=== PATIENT | female | born 1990 | race Caucasian/White ===

== ENCOUNTER 2016-10-28 03:01 | Emergency (ER) | payer SELFPAY ==
[2016-10-28 03:13] VITALS: BP 114/81
[2016-10-28] MEDS ORDERED: Lidocaine 1% 50 ML MDV INJECT ONE (03:34)
[2016-10-28] MEDS ORDERED: Diphtheria,Pertussis(Acell),Tetanus Vaccine 0.5 ML SDV inactive IM ONE (03:34)
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
== END 2016-10-28 04:47 | disposition home or self-care (01) ==
LOC: JD.ED 03:01
DX: S61.411A Laceration without foreign body of right hand, initial encounter (principal); Z23 Encounter for immunization; W26.0XXA Contact with knife, initial encounter; F41.8 Other specified anxiety disorders; F17.210 Nicotine dependence, cigarettes, uncomplicated
CPT/HCPCS: 12002; 90471; 90715; 99282; 99283-25

== ENCOUNTER 2017-09-14 21:59 | Emergency (ER) | payer SELFPAY ==
[2017-09-14 22:20] VITALS: BP 116/77
--- NOTE | 2017-09-15 00:07 | EDM.PDOC ---
ED HPI GENERAL MEDICAL PROBLEM - General Chief Complaint: ENT Problem Stated Complaint: poss jaw infection Time Seen by Provider: 09/14/17 23:18 Source of Information: Reports: Patient History Limitations: Reports: No Limitations - History of Present Illness INITIAL COMMENTS - FREE TEXT/NARRATIVE: Patient is a 26 year old female who presents to the E.D. complaining of left upper tooth pain. Patient states she has had URI symptoms for the past two days. THis includes runny nose, sorethroat, and body aches. Mild cough non productive in nature. Developed pain to the gumline of the back molar with questionable swelling to the cheek. She has no history of dental infections. IN addition notes left neck lymph node is mildy swollen. Denies pain with chewing on the affected side. Denies fever, N/V, diarrhea, SOB, CP, Abdominal pain, ear pain, or any additional complaints. Left Neck Pain Score (Numeric/FACES): 5 - Related Data Allergies Allergy/AdvReac Type Severity Reaction Status Date / Time No Known Allergies Allergy Verified 10/28/16 03:09 Home Meds: Home Meds LORazepam [Ativan] 0.5 mg PO TID PRN 09/14/17 [History] Past Medical History Psychiatric History: Reports: Anxiety, Depression, PTSD - Past Surgical History Female Surgical History: Reports: Section Social & Family History - Tobacco Use Smoking Status *Q: Former Smoker Years of Tobacco use: 10 Packs/Tins Daily: 0.5 Used Tobacco, but Quit: Yes Month Tobacco Last Used: 4 days ago - Caffeine Use Caffeine Use: Reports: Coffee, Energy Drinks, Soda - Recreational Drug Use Recreational Drug Use: No - Living Situation & Occupation Living situation: Reports: Single ED ROS GENERAL - Review of Systems Review Of Systems: See Below Constitutional: Denies: Fever, Malaise, Decreased Appetite HEENT: Reports: Rhinitis. Denies: Ear Pain, Throat Pain Respiratory: Reports: Cough. Denies: Sputum Cardiovascular: Reports: No Symptoms Endocrine: Reports: No Symptoms GI/Abdominal: Reports: No Symptoms Musculoskeletal: Reports: Neck Pain (left sided lymph node) Skin: Reports: No Symptoms Neurological: Reports: No Symptoms Psychiatric: Reports: No Symptoms ED EXAM, GENERAL - Physical Exam Exam: See Below Exam Limited By: No Limitations General Appearance: Alert, WD/WN, No Apparent Distress Eye Exam: Bilateral Eye: PERRL Ears: Normal External Exam, Normal Canal, Hearing Grossly Normal, Normal TMs Nose: Normal Inspection, Normal Mucosa, No Blood Throat/Mouth: Normal Inspection, Normal Teeth, Normal Oropharynx, Normal Voice, No Airway Compromise, Other (No gumline swelling to the upper palate. ) Head: Atraumatic, Normocephalic Neck: Normal Inspection, Supple, Full Range of Motion, Lymphadenopathy (L). No : Lymphadenopathy (R) Respiratory/Chest: No Respiratory Distress, Lungs Clear, Normal Breath Sounds, No Accessory Muscle Use, Chest Non-Tender Cardiovascular: Normal Peripheral Pulses, Regular Rate, Rhythm, No Murmur Peripheral Pulses: 4+: Radial (L) Neurological: Alert, Oriented, CN II-XII Intact, Normal Cognition, No Motor/ Sensory Deficits Psychiatric: Normal Affect, Normal Mood Skin Exam: Warm, Dry, Intact, Normal Color, No Rash Course - Vital Signs Last Recorded V/S: Last Vital Signs Temp 98.0 F 09/14/17 22:18 Pulse 88 09/14/17 22:18 Resp 20 09/14/17 22:18 BP 116/77 09/14/17 22:18 Pulse Ox 98 09/14/17 22:18 - Re-Assessments/Exams Free Text/Narrative Re-Assessment/Exam: On examination no concerning findings. Patient has a viral upper respiratory infection there is not require any treatment on our part. MIld swelling to he tonsilar lymph node. Non painful. Patient will be discharged home with instructions as documented. Departure - Departure Time of Disposition: 00:05 Disposition: Home, Self-Care 01 Condition: Good Clinical Impression: Viral upper respiratory tract infection with cough - Discharge Information Instructions: Upper Respiratory Infection, Adult, [id number] Referrals: Ariella Gomez PA-C [Primary Care Provider] - Forms: ED Department Discharge, ED Return to Work/School Form Additional Instructions: Vital upper respiratory infection. Treatment symptomatic care including Tylenol and Motrin in alternating fashion for pain. Push the fluids. Utilize nasal saline spray as needed throughout the course the day to loosen nasal secretions. Ensure adequate rest. Follow-up with PCP this coming week for reevaluation. Return to the ED if you develop any new or worsening symptoms.
== END 2017-09-14 23:55 | disposition home or self-care (01) ==
LOC: JD.ED 21:59
DX: J06.9 Acute upper respiratory infection, unspecified (principal); Z87.891 Personal history of nicotine dependence
CPT/HCPCS: 99282; 99283

== ENCOUNTER 2023-01-01 14:20 | Emergency (ER) | payer MEDICAID ==
[2023-01-01] MEDS ORDERED: methylPREDNISolone Sodium Succinate 125 MG/2 ML SDV IM ONE (15:29)
[2023-01-01 16:26] VITALS: BP 118/70; PULSE 80
== END 2023-01-01 16:26 | disposition home or self-care (01) ==
LOC: JD.ED 14:20
DX: L25.9 Unspecified contact dermatitis, unspecified cause (principal); F17.210 Nicotine dependence, cigarettes, uncomplicated; Z88.8 Allergy status to other drugs, medicaments and biological substances
CPT/HCPCS: 96372; 99283; J2930; 99282

== ENCOUNTER 2023-08-19 17:47 | Emergency (ER) | payer MEDICAID ==
[2023-08-19 19:28] LABS: APPEARANCE,URINE SLT CLOUDY (Clear); BILIRUBIN,URINE NEGATIVE (Negative); COLOR,URINE YELLOW (Yellow); GLUCOSE,URINE NEGATIVE (Negative); KETONES,URINE NEGATIVE (Negative); LEUKOCYTE ESTERASE,URINE NEGATIVE (Negative); NITRITE,URINE NEGATIVE (Negative); OCCULT BLOOD,URINE NEGATIVE (Negative); PH,URINE 6.5 (5.0-8.0); PROTEIN,URINE TRACE (Negative); UROBILINOGEN,URINE 0.2 (0.2-1.0)
[2023-08-19 19:29] LABS: BASOPHILS ABSOLUTE AUTO 0.1 K/mm3 (0.0-0.2); BASOPHILS PERCENT AUTO 0.5 % (0.0-1.0); EOSINOPHILS ABSOLUTE AUTO 0.1 K/mm3 (0.0-0.4); EOSINOPHILS PERCENT AUTO 0.4 % (0.0-6.0); HEMATOCRIT 38.8 % (37.0-47.0); HEMOGLOBIN 12.5 gm/dl (12.0-16.0); IMMATURE GRAN ABSOLUTE AUTO 0.04 K/mm3 (0.00-0.05); IMMATURE GRAN PERCENT AUTO 0.3 % (0.0-0.4); LYMPHOCYTES ABSOLUTE AUTO 2.9 K/mm3 (1.0-4.8); LYMPHOCYTES PERCENT AUTO 24.2 % (24.0-44.0); MEAN CORPUSCULAR HEMOGLOBIN 27.4 pg (28.0-32.0); MEAN CORPUSCULAR HGB CONC 32.2 g/dl (32.0-36.0); MEAN CORPUSCULAR VOLUME 84.9 fl (83.0-99.0); MEAN PLATELET VOLUME 9.1 fl (9.4-12.3); MONOCYTES ABSOLUTE AUTO 0.8 K/mm3 (0.0-0.8); MONOCYTES PERCENT AUTO 6.3 % (0.0-8.0); NEUTROPHILS ABSOLUTE AUTO 8.1 K/mm3 (1.8-7.7); NEUTROPHILS PERCENT AUTO 68.3 % (41.0-71.0); PLATELET COUNT,PLT 347 K/mm3 (150-400); RED BLOOD CELL COUNT 4.57 M/mm3 (4.10-5.30); WHITE BLOOD CELL COUNT,WBC 11.82 K/mm3 (3.9-11.3)
[2023-08-19 19:35] LABS: BARBITURATE SCREEN,URINE NEGATIVE (CUTOFF=200); BENZODIAZEPINES SCREEN,URINE NEGATIVE (CUTOFF=150); BUPRENORPHINE SCREEN,URINE NEGATIVE (CUTOFF=10); METHADONE SCREEN, URINE NEGATIVE (CUTOFF=200); METHAMPHETAMINES SCREEN, URINE PRESUMPTIVE POSITIVE (CUTOFF=500); OXYCODONE SCREEN,URINE NEGATIVE (CUT0FF=100); THC SCREEN,URINE 20 NG/ML NEGATIVE (CUTOFF=50)
[2023-08-19 19:49] LABS: ALKALINE PHOSPHATASE 78 U/L (46-116); ANION GAP 13.4 (5-15); ASPARTATE AMNIOTRANSFERASE,AST 15 U/L (15-37); BILIRUBIN TOTAL 0.2 mg/dL (0.2-1.0); BLOOD UREA NITROGEN,BUN 16 mg/dL (7-18); CALCIUM 8.4 mg/dL (8.5-10.1); CARBON DIOXIDE,CO2 27 mEq/L (21-32); CHLORIDE,CL 101 mEq/L (98-107); CREATININE 0.8 mg/dL (0.55-1.02); EST CRCL DRUG DOSING (CG) 78.37 mL/min; ESTIMATED GFR 99 mL/min (>60); GLUCOSE RANDOM 138 mg/dL (70-99); POTASSIUM,K 3.4 mEq/L (3.5-5.1); PROTEIN TOTAL,TP 7.6 g/dl (6.4-8.2); SODIUM,NA 138 mEq/L (136-145); TSH 2.847 uIU/mL (0.358-3.74)
[2023-08-19 19:56] LABS: AMPHETAMINES SCREEN, URINE PRESUMPTIVE POSITIVE (CUTOFF=500)
[2023-08-19 20:01] LABS: ALANINE AMINOTRANSFERASE,ALT 33 U/L (14-59)
[2023-08-19 20:04] LABS: ACETAMINOPHEN 0 ug/mL (10-30); HCG QUANTITATIVE < 1.0 mIU/mL
[2023-08-19] MEDS ORDERED: Nicotine 14 MG/24 Hr Patch TRDERM ONE (20:04)
[2023-08-19 20:06] LABS: BACTERIA,URINE MODERATE /hpf (FEW); MUCUS,URINE MODERATE /hpf (FEW); RBC,URINE 0-5 /hpf (0-5); WBC,URINE 0-5 /hpf (0-5)
[2023-08-19 20:12] LABS: ALBUMIN 3.8 g/dl (3.4-5.0)
[2023-08-19 20:27] LABS: CORONAVIRUS COVID-19 NAA NEGATIVE (NEGATIVE); INFLUENZA A NAA NEGATIVE (NEGATIVE)
[2023-08-20 00:07] VITALS: BP 126/83; PULSE 76
== END 2023-08-20 00:18 ==
LOC: JD.ED 17:47
DX: F31.9 Bipolar disorder, unspecified (principal); F15.10 Other stimulant abuse, uncomplicated
CPT/HCPCS: 0240U; 36415; 80053; 80143; 80179; 80306; 80307; 81001; 84443; 84702; 85025; 99285; A9270; 99284